=== PATIENT | female | born 1980 | race Caucasian/White ===

== ENCOUNTER 2016-04-25 04:06 | Emergency (ER) | payer BC, OTHER ==
[~2016-04-25] VITALS: Ht 165.1 cm; Wt 71.0 kg
[2016-04-25 04:11] VITALS: Ht 165.1 cm; Wt 71.0 kg
[2016-04-25] MEDS ORDERED: IBUP-1542 PO (04:24)
--- NOTE | 2016-04-25 04:27 | ERD ---
ER Documentation Chief Complaint Date/Time DATE: 04/25/16 TIME: 04:26 Chief Complaint l shoulder pain moving a pt HPI This is a 35-year-old female comes in with complaints of right shoulder pain status post moving a patient in the OR. Denies any direct trauma. Denies any nausea denies vomiting denies fevers chills. Denies any other current complaints. ROS All systems reviewed and are negative except as per history of present illness. Medications Home Meds Active Scripts Ibuprofen* (Motrin*) 600 Mg Tab, 600 MG PO Q6, #30 TAB Prov:TANISHA SANTOS 04/25/16 PMhx/Soc History of Surgery: Yes (tonsilectomy ) Anesthesia Reaction: No Hx Respiratory Disorders: Yes (asthma) Hx Alcohol Use: No Hx Substance Use: No Hx Tobacco Use: No Smoking Status: Unknown if ever smoked Physical Exam Vitals Vital Signs Date Time Temp Pulse Resp B/P Pulse Ox O2 Delivery O2 Flow Rate FiO2 04/25/16 04:11 98.3 79 16 115/69 98 Physical Exam Const: [] Head: Atraumatic Eyes: Normal Conjunctiva ENT: Normal External Ears, Nose and Mouth. Neck: Full range of motion..~ No meningismus. Resp: Clear to auscultation bilaterally Cardio: Regular rate and rhythm, no murmurs Abd: Soft, non tender, non distended. Normal bowel sounds Skin: No petechiae or rashes Back: No midline or flank tenderness Ext: No cyanosis, or edema Neur: Awake and alert Psych: Normal Mood and Affect Procedures/MDM Medical decision makin-year-old female as well as a rotator cuff strain. At this point she is clinically stable. She will be discharged home. Departure Diagnosis: Primary Impression: Shoulder injury Encounter type: initial encounter Laterality: left Qualified Code: S49.92XA - Shoulder injury, left, initial encounter Condition: Stable Patient Instructions: Shoulder Pain (Uncertain Cause) TANISHA SANTOS Apr 25, 2016 04:27
== END 2016-04-25 04:20 | disposition home or self-care (01) ==
LOC: E/R 04:06
DX: S49.92XA Unspecified injury of left shoulder and upper arm, initial encounter (principal); J45.909 Unspecified asthma, uncomplicated; X50.1XXA Overexertion from prolonged static or awkward postures, initial encounter; Y92.9 Unspecified place or not applicable
CPT/HCPCS: 99283